=== PATIENT | male | born 1980 | race Caucasian/White ===

== ENCOUNTER 2023-01-23 11:42 | Emergency (ER) | payer SELFPAY ==
[~2023-01-23] VITALS: Ht 170.2 cm; Wt 61.7 kg
[2023-01-23 11:45] VITALS: BP 122/72; TEMP 98.2; O2SAT 99
== END 2023-01-23 14:15 | disposition home or self-care (01) ==
LOC: ER 11:42
DX: R05.9 Cough, unspecified (principal)
CPT/HCPCS: 71045-TC

== ENCOUNTER 2023-11-19 15:10 | Emergency (ER) | payer MEDICAID ==
[~2023-11-19] VITALS: Ht 170.2 cm; Wt 65.8 kg
[2023-11-19 15:18] VITALS: BP 127/76; TEMP 98.8; O2SAT 98
--- NOTE | 2023-11-19 18:45 | NUR ---
PAGED UROLOGY X2 NO ANSWER, VM NOT SET UP
== END 2023-11-19 20:24 | disposition home or self-care (01) ==
LOC: ER 15:17
DX: N50.89 Other specified disorders of the male genital organs (principal)
CPT/HCPCS: 76870-TC